=== PATIENT | female | born 1990 | race Caucasian/White ===

== ENCOUNTER 2018-11-08 10:09 | Emergency (ER) | payer MEDICAID ==
[~2018-11-08] VITALS: Ht 162.6 cm; Wt 63.5 kg
[2018-11-08 10:27] VITALS: BP 134/74
[2018-11-08] MEDS ORDERED: KETOROLAC TROMETH 60MG/2ML VIAL IM ONE (11:00)
== END 2018-11-08 11:40 | disposition home or self-care (01) ==
LOC: ER 10:13
DX: R51 Headache (principal); R11.2 Nausea with vomiting, unspecified; F41.9 Anxiety disorder, unspecified; Y04.2XXA Assault by strike against or bumped into by another person, initial encounter
CPT/HCPCS: 70450; 81025; 96372; 99284; J1885